=== PATIENT | male | born 1955 | race Caucasian/White ===

== ENCOUNTER → 2016-08-20 | Outpatient (CLI) | payer MEDICARE ==
[2016-08-20 11:46] LABS: Basophils # (A) 0.1 k/uL (0-0.2); Basophils % (A) 2 %; CHCM 33.1; Eosinophils # (A) 0.2 k/uL (0-0.7); Eosinophils % (A) 3 %; HCT 42.3 % (39.0-53.0); HDW 2.99; HGB 13.9 gm/dL (13.0-17.5); Luc # (Auto) 0.19; Luc % (Auto) 3; Lymphocytes # (A) 1.1 k/uL (1.0-4.8); Lymphocytes % (A) 20 %; MCH 28.8 pg (25.0-35.0); MCHC 32.8 g/dL (31.0-37.0); MCV 87.8 fL (80.0-100.0); Mean Platelet Volume 7.9; Monocytes # (A) 0.3 k/uL (0-1.0); Monocytes % (A) 6 %; Neutrophils # (A) 3.6 k/uL (1.3-7.7); Neutrophils % (A) 66 %; RBC 4.82 m/uL (4.30-5.90); RDW 14.4 % (11.5-15.5); WBC 5.5 k/uL (3.8-10.6); WBC (Perox) 5.82
[2016-08-20 11:59] LABS: Appearance,Urine Clear (Clear); Bilirubin,Urine Negative (Negative); Glucose,Urine (UA) 3+ (Negative); Ketones,Urine Negative (Negative); Leukocyte Esterase,Urine Negative (Negative); Nitrite,Urine Negative (Negative); Protein,Urine Trace (Negative); Specific Gravity,Urine 1.012 (1.001-1.035); UA Billing (MACRO vs. MICRO) CHEM; Urobilinogen,Urine <2.0 mg/dL (<2.0)
[2016-08-20 12:23] LABS: Magnesium 1.6 mg/dL (1.6-2.3); Phosphorous 3.5 mg/dL (2.5-4.5); Potassium 4.8 mmol/L (3.5-5.1); Uric Acid 5.8 mg/dL (3.5-8.5)
[2016-08-20 12:32] LABS: % Iron Saturation 34.6 % (20-50)
== END | disposition home or self-care (01) ==
LOC: LABWHC1 11:06
PROVIDERS: ATTEND Internal Medicine Cardiovascular Disease
DX: N18.3 Chronic kidney disease, stage 3 (moderate) (principal); D50.9 Iron deficiency anemia, unspecified; E55.9 Vitamin D deficiency, unspecified; M10.9 Gout, unspecified; N39.0 Urinary tract infection, site not specified; E78.2 Mixed hyperlipidemia
CPT/HCPCS: 36415; 80048; 80061; 81003; 82306; 82550; 82728; 83540; 83550; 83735; 83970; 84100; 84450; 84460; 84550; 85025

== ENCOUNTER → 2016-12-14 | Outpatient (CLI) | payer MEDICARE ==
[2016-12-14 11:03] LABS: CH 28.6; CHCM 32.5; HCT 39.7 % (39.0-53.0); HDW 2.92; HGB 12.9 gm/dL (13.0-17.5); MCH 28.7 pg (25.0-35.0); MCHC 32.6 g/dL (31.0-37.0); MCV 88.2 fL (80.0-100.0); Mean Platelet Volume 7.8; RBC 4.49 m/uL (4.30-5.90); RDW 14.8 % (11.5-15.5)
[2016-12-14 11:21] LABS: ALT 36 U/L (21-72); AST 26 U/L (17-59); Alkaline Phosphatase 66 U/L (38-126); Anion Gap 10 mmol/L; Bilirubin, Delta 0.4 mg/dL (0.0-0.2); Blood Urea Nitrogen 24 mg/dL (9-20); Calcium 9.9 mg/dL (8.4-10.2); Carbon Dioxide 30 mmol/L (22-30); Chloride 99 mmol/L (98-107); Cholesterol 309 mg/dL (<200); Creatine Kinase 85 U/L (55-170); Glucose 131 mg/dL (74-99); HDL Cholesterol 35 mg/dL (40-60); Non-African American GFR(MDRD) >60 (>60 ml/min/1.73 sqM); Sodium 139 mmol/L (137-145); Total Bilirubin 0.6 mg/dL (0.2-1.3); Total Protein 8.2 g/dL (6.3-8.2)
[2016-12-14 11:36] LABS: Triglycerides 584 mg/dL (<150)
[2016-12-14 14:15] LABS: Hemoglobin A1C 9.5 % (4.2-6.1)
== END | disposition home or self-care (01) ==
LOC: LABWHC1 10:34
PROVIDERS: ATTEND Internal Medicine Cardiovascular Disease
DX: I10 Essential (primary) hypertension (principal); E11.9 Type 2 diabetes mellitus without complications; N18.3 Chronic kidney disease, stage 3 (moderate); I25.10 Atherosclerotic heart disease of native coronary artery without angina pectoris; E78.5 Hyperlipidemia, unspecified
CPT/HCPCS: 36415; 80053; 80061; 82248; 82550; 83036; 84439; 84443; 85027

== ENCOUNTER → 2017-03-02 | Outpatient (CLI) | payer MEDICARE ==
[2017-03-02 09:42] LABS: Basophils # (A) 0.1 k/uL (0-0.2); Basophils % (A) 2 %; CH 29.2; CHCM 33.7; Eosinophils # (A) 0.3 k/uL (0-0.7); Eosinophils % (A) 4 %; HCT 44.7 % (39.0-53.0); HDW 3.11; HGB 14.7 gm/dL (13.0-17.5); Luc # (Auto) 0.14; Luc % (Auto) 2; Lymphocytes # (A) 1.4 k/uL (1.0-4.8); Lymphocytes % (A) 21 %; MCH 28.7 pg (25.0-35.0); MCHC 32.9 g/dL (31.0-37.0); MCV 87.2 fL (80.0-100.0); Mean Platelet Volume 8.1; Monocytes # (A) 0.4 k/uL (0-1.0); Monocytes % (A) 6 %; Neutrophils # (A) 4.3 k/uL (1.3-7.7); Neutrophils % (A) 65 %; RBC 5.13 m/uL (4.30-5.90); RDW 15.4 % (11.5-15.5); WBC 6.6 k/uL (3.8-10.6); WBC (Perox) 6.24
[2017-03-02 10:18] LABS: Appearance,Urine Clear (Clear); Bilirubin,Urine Negative (Negative); Glucose,Urine (UA) 4+ (Negative); Ketones,Urine Negative (Negative); Leukocyte Esterase,Urine Negative (Negative); Mucus,Urine Rare /hpf; Nitrite,Urine Negative (Negative); Particle Count 458; Protein,Urine 1+ (Negative); Specific Gravity,Urine 1.018 (1.001-1.035); UA Billing (MACRO vs. MICRO) MICRO; Urobilinogen,Urine <2.0 mg/dL (<2.0); WBC,Urine 1 /hpf (0-5)
[2017-03-02 10:22] LABS: ALT 54 U/L (21-72); AST 28 U/L (17-59); Alkaline Phosphatase 101 U/L (38-126); Anion Gap 16 mmol/L; Bilirubin, Delta 0.4 mg/dL (0.0-0.2); Blood Urea Nitrogen 27 mg/dL (9-20); Calcium 9.9 mg/dL (8.4-10.2); Carbon Dioxide 24 mmol/L (22-30); Chloride 95 mmol/L (98-107); Cholesterol 228 mg/dL (<200); Glucose 367 mg/dL (74-99); HDL Cholesterol 25 mg/dL (40-60); Iron 74 ug/dL (49-181); Magnesium 1.6 mg/dL (1.6-2.3); Non-African American GFR(MDRD) 56 (>60 ml/min/1.73 sqM); Phosphorous 4.5 mg/dL (2.5-4.5); Potassium 4.8 mmol/L (3.5-5.1); Sodium 135 mmol/L (137-145); Total Bilirubin 0.5 mg/dL (0.2-1.3); Total Protein 7.7 g/dL (6.3-8.2)
[2017-03-02 10:31] LABS: % Iron Saturation 24.1 % (20-50); Total Iron Binding Capacity 307 ug/dL (261-462)
[2017-03-02 13:11] LABS: Triglycerides 2312 mg/dL (<150)
== END | disposition home or self-care (01) ==
LOC: LABWHC1 08:58
PROVIDERS: ATTEND Internal Medicine Cardiovascular Disease
DX: E55.9 Vitamin D deficiency, unspecified (principal); E78.5 Hyperlipidemia, unspecified; D50.9 Iron deficiency anemia, unspecified; N18.3 Chronic kidney disease, stage 3 (moderate); N39.0 Urinary tract infection, site not specified; M10.9 Gout, unspecified
CPT/HCPCS: 36415; 80048; 80061; 80076; 81001; 82306; 82728; 83540; 83550; 83735; 83970; 84100; 84550; 85025

== ENCOUNTER → 2017-03-11 | Outpatient (CLI) | payer MEDICARE ==
[~2017-03-11] MED LIST: TUBERCULIN PPD (SKIN TEST) 5 UNIT/0.1 ML (MDV) VIAL INTRADERMA ONE
[2017-03-11 12:03] VITALS: BP 131/77; PULSE 71; RESP 16; TEMP 97.9
== END ==
LOC: PROCWHC3 11:44
PROVIDERS: ATTEND Dermatology MOHS-Micrographic Surgery
DX: L40.0 Psoriasis vulgaris (principal)
CPT/HCPCS: 86580

== ENCOUNTER → 2017-04-02 | Outpatient (CLI) | payer MEDICARE ==
--- NOTE | 2017-04-02 09:37 | US ---
EXAMINATION TYPE: US kidneys/renal and bladder DATE OF EXAM: 04/02/2017 COMPARISON: NONE CLINICAL HISTORY: N18.3 CKD. No symptoms, h/o renal stones EXAM MEASUREMENTS: Right Kidney: 11.9 x 5.7 x 5.2 cm Left Kidney: 12.1 x 5.4 x 5.9 cm Right Kidney: suboptimal views of right renal due to bowel gas and body habitus, appears wnl Left Kidney: mild hydronephrosis is seen an unchanged with inferior renal stone = 1.4cm. The previou sly seen additional 8 mm left lower pole renal calculus is not visualized on today's examination. Bladder: not fully distended but appears wnl Bilateral Jets seen: yes IMPRESSION: 1. Mild persistent left hydronephrosis and 1.4 cm nonobstructing lower pole calculus. Nonvisualizatio n of the additional known 8 mm left renal calculus. 2. Suboptimal visualization of the right kidney.
== END ==
LOC: RADUSWWP 08:57
PROVIDERS: ATTEND Internal Medicine Nephrology
DX: N13.2 Hydronephrosis with renal and ureteral calculous obstruction (principal)
CPT/HCPCS: 76770

== ENCOUNTER 2017-05-05 08:43 | Day surgery (SDC) | payer MEDICARE ==
[2017-04-30 16:15] VITALS: BMI 34.7
[~2017-05-05 08:43] MED LIST changes: +LACTATED RINGERS 1,000 ML IV SCH; -TUBERCULIN PPD (SKIN TEST) 5 UNIT/0.1 ML (MDV) VIAL INTRADERMA ONE
[2017-05-05 09:03] VITALS: TEMP 98.1
[2017-05-05] MEDS ORDERED: LIDOCAINE 1% 20 ML VIAL (10MG/ML) FOR IV START INTRADERMA ONE (09:16)
[2017-05-05 09:41] LABS: Glucose,Whole Blood 268 mg/dL (75-99)
[2017-05-05] MEDS ORDERED: PROPOFOL 10 MG/ML 20 ML VIAL IV ONE (10:25)
--- NOTE | 2017-05-05 10:33 | P.GSHP ---
History of Present Illness H&P Date: 05/05/17 Chief Complaint: Screening colonoscopy This is a [id number] male referred from Dr. Jose Slade. Patient presents today for screening colonoscopy. Past Medical History Past Medical History: Coronary Artery Disease (CAD), Diabetes Mellitus, Hyperlipidemia, Hypertension, Skin Disorder, Thyroid Disorder Additional Past Medical History / Comment(s): psoriasis, stent in heart 12 years ago stent one month ago Sep,psoriasis,kidney stones Last Myocardial Infarction Date:: unknown History of Any Multi-Drug Resistant Organisms: None Reported Past Surgical History: Heart Catheterization With Stent Additional Past Surgical History / Comment(s): AAA 8.5 cm-aortic graft, heart stent x2 Past Anesthesia/Blood Transfusion Reactions: Family History of Problems w/ Anesthesia, Motion Sickness, Postoperative Nausea & Vomiting (PONV) Additional Past Anesthesia/Blood Transfusion Reaction / Comment(s): brother has hx PO n/v Date of Last Stent Placement:: oct 07 2014 Smoking Status: Former smoker - Past Family History Father History Unknown: Yes Mother Family Medical History: Deep Vein Thrombosis (DVT), Myocardial Infarction (NM) Medications and Allergies Home Medications Medication Instructions Recorded Confirmed Type Aspirin 325 mg PO HS 10/04/14 05/05/17 History Nitroglycerin Sl Tabs [Nitrostat] 0.4 mg SL Q5M #25 tab 10/08/14 05/05/17 Rx Levothyroxine Sodium [Synthroid] 75 mcg PO QAM 11/01/14 05/05/17 History Simvastatin [Zocor] 40 mg PO HS 11/01/14 05/05/17 History metFORMIN HCL [Glucophage] 1,000 mg PO BID-W/MEALS tab 11/04/14 05/05/17 Rx Allopurinol [Zyloprim] 100 mg PO DAILY 04/30/17 05/05/17 History Atenolol/Chlorthalidone 0.5 tab PO HS 04/30/17 05/05/17 History [Atenolol-Chlorthalidone 50-25] Ergocalciferol [Vitamin D2] 50,000 unit PO WE 04/30/17 05/05/17 History Insulin NPH Hum/Reg Insulin Hm 50 unit SQ BID-W/MEALS 04/30/17 05/05/17 History [NovoLIN 70-30 100 UNIT/ML VIAL] Magnesium 400 mg PO HS 04/30/17 05/05/17 History Turmeric Root Extract [Turmeric] 250 mg PO HS 04/30/17 05/05/17 History Turmeric Root Extract [Turmeric] 400 mg PO DAILY 04/30/17 05/05/17 History Allergies Allergy/AdvReac Type Severity Reaction Status Date / Time adhesive AdvReac Rash/Hives-paper Verified 05/05/17 08:57 tape ok alprazolam [From Xanax] AdvReac Hallucinati Unverified 05/05/17 08:57 ons codeine AdvReac Nausea & Verified 05/05/17 08:57 Vomiting fentanyl AdvReac Confusion Verified 05/05/17 08:57 lorazepam [From Ativan] AdvReac Confusion Verified 05/05/17 08:57 morphine AdvReac Nausea & Verified 05/05/17 08:57 Vomiting Surgical - Exam Vital Signs Temp Pulse Resp BP Pulse Ox 98.1 F 77 16 160/106 98 05/05/17 08:58 05/05/17 08:58 05/05/17 08:58 05/05/17 08:58 05/05/17 08:58 - General well developed, no distress - Eyes PERRL - ENT normal pinna - Neck no masses - Respiratory normal expansion - Cardiovascular Rhythm: regular - Abdomen Abdomen: soft, non tender Results - Labs Abnormal Lab Results - Last 24 Hours (Table) 05/05/17 Range/Units 09:24 POC Glucose (mg/dL) 268 H (75-99) mg/dL Assessment and Plan Plan: We'll perform screening colonoscopy
--- NOTE | 2017-05-05 10:49 | P.OP ---
Date of Procedure: 05/05/17 Preoperative Diagnosis: Screening colonoscopy Postoperative Diagnosis: Polyp at 80 cm Procedure(s) Performed: Colonoscopy Anesthesia: MAC Surgeon: Ruddy Eugene Pathology: other (Colon polyp) Condition: stable Disposition: PACU Description of Procedure: The patient's placed on the endoscopy table in the lateral position. He received IV sedation. Digital rectal exam was performed which revealed no abnormalities. Lenaayaell colonoscope was then placed patient anus passed throughout the entire colon. The ileocecal valve was visualized. The cecum, ascending and transverse colon appeared normal. At the ascending kari there was a small sessile polyp. This site. Scope was withdrawn remainder the descending and sigmoid colon appeared normal. The scope was withdrawn for patient.
[2017-05-05 11:14] VITALS: BP 139/82; PULSE 82; RESP 20
== END 2017-05-05 11:36 | disposition home or self-care (01) ==
LOC: ORWHC2ENDO 08:43
PROVIDERS: ATTEND Surgery
DX: Z12.11 Encounter for screening for malignant neoplasm of colon (principal); D12.3 Benign neoplasm of transverse colon; I25.10 Atherosclerotic heart disease of native coronary artery without angina pectoris; I10 Essential (primary) hypertension; Z87.891 Personal history of nicotine dependence; E78.5 Hyperlipidemia, unspecified; E11.9 Type 2 diabetes mellitus without complications; Z79.4 Long term (current) use of insulin; Z79.84 Long term (current) use of oral hypoglycemic drugs; E07.9 Disorder of thyroid, unspecified; Z95.5 Presence of coronary angioplasty implant and graft; I25.2 Old myocardial infarction; I73.9 Peripheral vascular disease, unspecified; N28.9 Disorder of kidney and ureter, unspecified; Z79.82 Long term (current) use of aspirin; Z79.899 Other long term (current) drug therapy; Z88.5 Allergy status to narcotic agent; Z88.8 Allergy status to other drugs, medicaments and biological substances; Z91.09 Other allergy status, other than to drugs and biological substances
CPT/HCPCS: 88305; 45380; J2704

== ENCOUNTER → 2017-07-09 | Outpatient (CLI) | payer MEDICARE ==
--- NOTE | 2017-07-09 13:21 | US ---
EXAMINATION TYPE: US thyroid st tissue head/neck DATE OF EXAM: 07/09/2017 COMPARISON: EXAMINATION TYPE: US thyroid st tissue head/neck DATE OF EXAM: 07/09/2017 COMPARISON: NONE CLINICAL HISTORY: R22.1 Neck mass. palpable area left side of neck just under ear for approximately o ne month, patient believes it is getting smaller and area is not tender or painful. Scanned palpable area just below left ear, parotid gland area, there is a 2.5 x 1.8 x 1.7cm complex a sis with some internal flow, appears inside of parotid gland. IMPRESSION: Complex, vascular partially cystic and partially solid mass either within the inferior s uperficial lobe of the parotid gland or adjacent to the parotid gland. Diagnostic considerations are for necrotic adenopathy, pleomorphic adenoma adenoid cystic carcinoma, Warthin's tumor, or less likel y complex second branchial cleft cyst. Further evaluation with dynamic contrast enhanced CT or MR are recommended.
== END | disposition home or self-care (01) ==
LOC: RADUSWWP 12:51
PROVIDERS: ATTEND Family Medicine
DX: K11.8 Other diseases of salivary glands (principal); R22.1 Localized swelling, mass and lump, neck
CPT/HCPCS: 76536

== ENCOUNTER → 2017-08-06 | Outpatient (CLI) | payer MEDICARE ==
[2017-08-07 02:55] LABS: Basophils # (A) 0.1 k/uL (0-0.2); Basophils % (A) 1 %; Eosinophils # (A) 0.2 k/uL (0-0.7); Eosinophils % (A) 3 %; HCT 43.5 % (39.0-53.0); HGB 13.6 gm/dL (13.0-17.5); Hypochromasia Slight; Lymphocytes # (A) 1.5 k/uL (1.0-4.8); Lymphocytes % (A) 18 %; MCH 28.5 pg (25.0-35.0); MCHC 31.4 g/dL (31.0-37.0); MCV 90.8 fL (80.0-100.0); Mean Platelet Volume 10.3; Monocytes # (A) 0.5 k/uL (0-1.0); Monocytes % (A) 6 %; Neutrophils # (A) 5.9 k/uL (1.3-7.7); Neutrophils % (A) 71 %; Platelet Count 227 k/uL (150-450); RBC 4.79 m/uL (4.30-5.90); WBC 8.3 k/uL (3.8-10.6)
[2017-08-07 16:57] LABS: Erythrocyte Sedimentation Rate 58 mm/hr (0-15)
[2017-08-10 15:33] LABS: C-ANCA <1:20 Titer (<1:20); P-ANCA <1:20 Titer (<1:20)
== END | disposition home or self-care (01) ==
LOC: LABWHC1 10:26
PROVIDERS: ATTEND Otolaryngology
DX: L92.9 Granulomatous disorder of the skin and subcutaneous tissue, unspecified (principal)
CPT/HCPCS: 36415; 82784; 82785; 85025; 85652; 86038; 86255

== ENCOUNTER → 2018-06-28 | Outpatient (CLI) | payer MEDICARE ==
--- NOTE | 2018-06-28 14:32 | US ---
EXAMINATION TYPE: US kidneys/renal and bladder DATE OF EXAM: 06/28/2018 COMPARISON: 04/02/2017 CLINICAL HISTORY: N18.3 Chronic kidney disease, stage 3 (moderate); diabetic; renal stones EXAM MEASUREMENTS: Right Kidney: 10.1 x 5.8 x 5.0 cm Left Kidney: 12.8 x 5.8 x 6.3 cm Post Void Residual Volume: 9.3 mL Right Kidney: No hydronephrosis or nephrolithiasis seen Left Kidney: mid medial shadowing stone = 1.6 x 2.0 x 0.7cm; cluster of shadowing stones = 1.2 x 0.7 x 0.9cm ; mild renal pelvic prominence is noted with renal stone; upper pole clustered cyst = 2.4 x 2 .0 x 1.8cm Bladder: wnl Bilateral Jets seen: yes, small jets are seen Normal Post Void Residual: yes IMPRESSION: 1. Left renal calculi with mild hydronephrosis similar in appearance to the prior exam. 2. Upper pole left renal cyst measuring 2.4 cm. .
== END | disposition home or self-care (01) ==
LOC: RADUSWWP 13:32
PROVIDERS: ATTEND Internal Medicine Nephrology
DX: N13.2 Hydronephrosis with renal and ureteral calculous obstruction (principal); N28.1 Cyst of kidney, acquired; N18.3 Chronic kidney disease, stage 3 (moderate)
CPT/HCPCS: 76770

== ENCOUNTER → 2019-07-05 | Outpatient (CLI) | payer MEDICARE ==
--- NOTE | 2019-07-05 11:04 | US ---
EXAMINATION TYPE: US kidneys/renal and bladder DATE OF EXAM: 07/05/2019 COMPARISON: 06/28/2018 CLINICAL HISTORY: N18.3 CKD STAGE 3. CKD stage 3, history of kidney stones EXAM MEASUREMENTS: Right Kidney: 11.5 x 5.9 x 5.0 cm Left Kidney: 12.9 x 5.5 x 4.3 cm Right Kidney: somewhat lobulated contour Left Kidney: cystic area upper pole = 2.3 x 1.8 x 1.7cm, stone mid = 1.6cm, stone lower pole = 1.3cm, minimally prominent left renal pelvis Bladder: appears wnl Bilateral Jets seen: no There is no evidence for hydronephrosis at this point in time. Mild cortical renal thinning. No mas ses are identified. The urinary bladder is anechoic. Bilateral ureteral jets are seen. IMPRESSION: 1. Nonobstructing left renal calculi measuring 1.6 cm in the mid pole and 1.3 cm in the lower pole. S lightly prominent left renal pelvis without hydronephrosis. 2. Sonographic sequela of medical renal disease.
== END | disposition home or self-care (01) ==
LOC: RADUSWWP 09:46
PROVIDERS: ATTEND Internal Medicine Nephrology
DX: N20.0 Calculus of kidney (principal)
CPT/HCPCS: 76770

== ENCOUNTER → 2020-03-26 | Outpatient (CLI) | payer MEDICARE | END | disposition home or self-care (01) | LOC: LABWHC1 13:05 | PROVIDERS: ATTEND Physician Assistant | DX: L40.0 Psoriasis vulgaris (principal); Z79.899 Other long term (current) drug therapy | CPT/HCPCS: 36415; 86480 ==

== ENCOUNTER → 2021-01-29 | Outpatient (CLI) | payer MEDICARE ==
--- NOTE | 2021-01-29 13:39 | XR ---
EXAMINATION TYPE: XR chest 2V DATE OF EXAM: 01/29/2021 COMPARISON: Prior chest x-ray 10/03/2014 HISTORY: Chest pain TECHNIQUE: Frontal and lateral views of the chest are obtained on 3 images. FINDINGS: There is no focal air space opacity, pleural effusion, or pneumothorax seen. The cardiac silhouette size is within normal limits. There is stable elevation of the right hemidiaphragm. The o sseous structures are intact, there is thoracic spondylosis. Aorta is dense. IMPRESSION: No acute cardiopulmonary process.
== END | disposition home or self-care (01) ==
LOC: RADXRMAIN 09:28
PROVIDERS: ATTEND Family Medicine
DX: R07.9 Chest pain, unspecified (principal)
CPT/HCPCS: 71046

== ENCOUNTER → 2021-02-12 | Outpatient (CLI) | payer MEDICARE ==
--- NOTE | 2021-02-12 13:46 | CONS ---
CONSULTATION DATE OF SERVICE: 02/12/2021. 65-year-old gentleman has been evaluated in Sleep Center for possible obstructive sleep apnea-hypopnea syndrome. HISTORY OF PRESENT ILLNESS/SLEEP WAKE EVALUATION: SLEEP SCHEDULE: Patient's usual sleep schedule from 09:30/10 p.m. until 7 or 8 a.m. FALLING ASLEEP: No problems with falling asleep. No TV in bedroom. DURING SLEEP: He sleeps in different position. According to his , he snores. He wakes up from sleep once with nocturia and dry mouth. DURING THE DAY/SLEEP WAKE EVALUATION: In the morning, patient wakes up tired and feels sleepy. During the day, may take naps any time. [place] Sleepiness Scale is 6. During the night, patient moving significantly. No history of hypnogogical hallucinations, sleep paralysis or cataplexy. PAST MEDICAL HISTORY: Positive for coronary artery disease, status post stent insertion, hypertension, abdominal aortic aneurysm treated with the graft installation, diabetes mellitus, hypertension, hypothyroidism, acid reflux, gout, hyperlipidemia, back problems. PAST SURGICAL HISTORY: Treatment of abdominal aortic aneurysm as already mentioned above, stent insertion to coronary arteries. MEDICATIONS: Metformin 500 mg 2 tablets in the morning. Aspirin 325 mg once a day. Atenolol chlorthalidone 50/25 mg half a day, Pioglitazone once a day, levothyroxine 75 mcg once a day, Famotidine 20 mg to 1-2 times a day. Allopurinol 100 mg once a day. Naproxen. Crestor 40 mg once a day. SOCIAL HISTORY: Negative for smoking. Occasional alcohol at the present time. FAMILY HISTORY: Positive for sleep apnea by his brother. REVIEW OF SYSTEMS: Tiredness and sleepiness during the day. No fevers. No double vision. No recent chest pain. No shortness of breath. No abdominal pain. No bleeding episodes. No blood in the urine. No seizure episodes. No chest pain. No headache at the present time. No abdominal pain. No blood in the urine. No blood in the stool. PHYSICAL EXAMINATION: GENERAL: gentleman without distress. VITAL SIGNS: BP 159/82, HR 58, RR 18, height 6 feet 1 inch, weight 314.6, body mass index 41.4, temperature 96.6. HEENT: PERRLA, EOMI. Oropharynx extremely low position of soft palate. Mallampati IV. NECK: Supple. No JVD. Neck is wide, 22 inches in circumference. LUNGS: Clear to percussion and to auscultation. Good air exchange. No wheezing or rhonchi. HEART: S1, S2 regular. No murmurs, gallops, or rubs. ABDOMEN: Obese. Soft and nontender. Bowel sounds are present. No organomegaly appreciated. EXTREMITIES: No clubbing or cyanosis. INSURANCE SALES PRODUCER: Awake, alert, and oriented X3. Cranial nerves 2 to 7 intact. There is no fasciculation or atrophy. noted. No focal deficits observed. IMPRESSION: 1. Snoring awakenings from sleep with dry mouth, extremely low position of soft palate, Mallampati 4, extremely wide neck 22 inches. Excessive daytime sleepiness. Patient may take naps at any time. Obstructive sleep apnea-hypopnea syndrome. 2. Obesity, body mass index 41.4. 3. Hypertension. 4. Coronary artery disease, status post stent insertions. 5. History of abdominal aortic aneurysm, status post treatment with a graft. 6. Diabetes mellitus. 7. Hypothyroidism. 8. Acid reflux. 9. Gout. 10.Back problems. PLAN: 1. Polysomnography for evaluation of patient's breathing during sleep. 2. CPAP/BiPAP titration if sleep study confirms obstructive sleep apnea-hypopnea syndrome. 3. Preferable position during sleep on the side. 4. No driving if patient feels any sleepiness. 5. I will see patient for follow up visit to explain results of testing and following plan. Thank you very much for referring this patient for consultation. Sincerely, Mark Castro MD, PhD, FAASM Diplomat of [employer] [facility] [place] MMODL / IJN: [id number] /
== END ==
LOC: SLEEP 10:51
PROVIDERS: ATTEND Internal Medicine
DX: G47.33 Obstructive sleep apnea (adult) (pediatric) (principal); E66.9 Obesity, unspecified; E03.9 Hypothyroidism, unspecified; E11.9 Type 2 diabetes mellitus without complications; E78.5 Hyperlipidemia, unspecified; I10 Essential (primary) hypertension; K21.9 Gastro-esophageal reflux disease without esophagitis; Z68.41 Body mass index [BMI] 40.0-44.9, adult; I25.10 Atherosclerotic heart disease of native coronary artery without angina pectoris; M10.9 Gout, unspecified; Z86.79 Personal history of other diseases of the circulatory system; M53.80 Other specified dorsopathies, site unspecified; Z79.82 Long term (current) use of aspirin; Z79.84 Long term (current) use of oral hypoglycemic drugs; Z79.899 Other long term (current) drug therapy; Z95.5 Presence of coronary angioplasty implant and graft; Z88.5 Allergy status to narcotic agent; Z88.8 Allergy status to other drugs, medicaments and biological substances; Z91.048 Other nonmedicinal substance allergy status; Z87.891 Personal history of nicotine dependence
CPT/HCPCS: 99211

== ENCOUNTER → 2021-03-03 | Outpatient (CLI) | payer MEDICARE | END | disposition home or self-care (01) | LOC: LABWHC1 13:52 | PROVIDERS: ATTEND Dermatology | DX: Z79.899 Other long term (current) drug therapy (principal) | CPT/HCPCS: 36415; 86480 ==

== ENCOUNTER 2021-05-15 09:00 | Day surgery (SDC) | payer MEDICARE ==
[2021-05-13 11:31] VITALS: BMI 38.5
[~2021-05-15 09:00] MED LIST changes: -LACTATED RINGERS 1,000 ML IV SCH; +SODIUM CHLORIDE 0.9% 1,000 ML IV SCH
[2021-05-15] MEDS ORDERED: SODIUM CHLORIDE 0.9% 500 ML IV ONE (09:24)
[2021-05-15 09:40] VITALS: BP 209/99; RESP 16; TEMP 98.8
[2021-05-15 09:46] LABS: Glucose,Whole Blood 261 mg/dL (75-99)
[2021-05-15 11:04] VITALS: PULSE 78
--- NOTE | 2021-05-15 14:20 | P.EPPROC ---
- EP Procedure Note Electrophysiology Procedure Note: Diagnosis Recurrent dizzy spells Twelve-lead EKG Sinus rhythm normal ME narrow QRS normal ST segments Tilt table test per protocol Baseline blood pressure 178/86 and 169/79 mmHg Patient was tilted upright at an angle lives 70 per protocol within 2 minutes there was a drop in his blood pressure to 153/83 mmHg Following that there was a gradual progressive decline in his blood pressure to between 120 230 mmHg Heart rate remained stable Patient remained asymptomatic Impression supine hypertension Possible mild orthostatic hypotension syndrome Normal twelve-lead EKG
== END 2021-05-15 11:04 | disposition home or self-care (01) ==
LOC: CATHEP 09:00
PROVIDERS: ATTEND Internal Medicine Clinical Cardiac Electrophysiology
DX: R42 Dizziness and giddiness (principal); I10 Essential (primary) hypertension; E78.2 Mixed hyperlipidemia; E11.9 Type 2 diabetes mellitus without complications; Z95.5 Presence of coronary angioplasty implant and graft; Z20.822 Contact with and (suspected) exposure to COVID-19; E78.00 Pure hypercholesterolemia, unspecified; I25.10 Atherosclerotic heart disease of native coronary artery without angina pectoris; I71.4 Abdominal aortic aneurysm, without rupture; Z79.899 Other long term (current) drug therapy; Z79.84 Long term (current) use of oral hypoglycemic drugs; Z79.890 Hormone replacement therapy; Z79.4 Long term (current) use of insulin; Z88.4 Allergy status to anesthetic agent; Z88.5 Allergy status to narcotic agent; Z88.8 Allergy status to other drugs, medicaments and biological substances; J44.9 Chronic obstructive pulmonary disease, unspecified
CPT/HCPCS: 87635; 93660

== ENCOUNTER → 2021-06-11 | Outpatient (CLI) | payer MEDICARE ==
--- NOTE | 2021-06-12 10:09 | ECHOF ---
Referral Reason:R06.00 shortness of breath MEASUREMENTS -------- HEIGHT: 182.9 cm WEIGHT: 142.4 kg BP: RVIDd: 3.8 cm (< 3.3) IVSd: 1.4 cm (0.6 - 1.1) LVIDd: 3.9 cm (3.9 - 5.3) LVPWd: 2.5 cm (0.6 - 1.1) IVSs: 2.1 cm LVIDs: 3.6 cm LVPWs: 1.7 cm Ao Diam: 3.6 cm (2.0 - 3.7) AV Cusp: 1.5 cm (1.5 - 2.6) LA Diam: 4.3 cm (2.7 - 3.8) MV EXCURSION: 17.858 mm (> 18.000) MV EF SLOPE: 45 mm/s (70 - 150) EPSS: 0.3 cm MV E Go: 0.35 m/s MV DecT: 230 ms MV A Go: 0.66 m/s MV E/A Ratio: 0.53 RAP: 5.00 mmHg RVSP: 14.95 mmHg FINDINGS -------- Sinus rhythm. Morbid Obesity The left ventricular size is normal. There is moderate concentric left ventricular hypertrophy. O verall left ventricular systolic function is low-normal with, an EF between 50 - 55 %. The right ventricle is normal in size. The left atrial size is normal. The right atrial size is normal. There is mild aortic valve sclerosis. There is no evidence of aortic regurgitation. Mild mitral regurgitation is present. Mild tricuspid regurgitation present. Right ventricular systolic pressure is normal at < 35 mmHg. The pulmonic valve was not well visualized. Echo free space represents a pericardial fat pad. There is a small pericardial effusion is located near the right atrium. CONCLUSIONS -------- 1. Morbid Obesity 2. The left ventricular size is normal. 3. There is moderate concentric left ventricular hypertrophy. 4. Overall left ventricular systolic function is low-normal with, an EF between 50 - 55 %. 5. The right ventricle is normal in size. 6. The left atrial size is normal. 7. The right atrial size is normal. 8. There is mild aortic valve sclerosis. 9. Mild mitral regurgitation is present. 10. Mild tricuspid regurgitation present. 11. The pulmonic valve was not well visualized. 12. Echo free space represents a pericardial fat pad. 13. There is a small pericardial effusion is located near the right atrium. PRINTER APPRENTICE: Beatriz Wilson RDCS
== END | disposition home or self-care (01) ==
LOC: RADECHMAIN 14:51
PROVIDERS: ATTEND Family Medicine
DX: I35.8 Other nonrheumatic aortic valve disorders (principal); I31.3 Pericardial effusion (noninflammatory); I51.7 Cardiomegaly; E66.01 Morbid (severe) obesity due to excess calories
CPT/HCPCS: 93306

== ENCOUNTER → 2021-07-23 | Outpatient (CLI) | payer MEDICARE ==
[2021-07-23 17:14] LABS: African American GFR (CKD) 62.2 (60.0-200.0); Albumin 4.3 g/dL (3.8-4.9); Albumin/Globulin Ratio 1.47 (1.60-3.17); Anion Gap 15.5 mmol/L (10.00-18.00); BUN/Creat Ratio 17.9 Ratio (12.00-20.00); Blood Urea Nitrogen 24.7 mg/dL (9.0-27.0); Calcium 10.1 mg/dL (8.7-10.3); Carbon Dioxide 24.4 mmol/L (20.0-27.5); Globulin 2.9 g/dL (1.6-3.3); HDL Cholesterol 27.8 mg/dL (40.00-60.00); Magnesium 1.8 mg/dL (1.5-2.4); Non-African American GFR(CKD) 53.7 (60.0-200.0); Total Bilirubin 0.2 mg/dL (0.30-1.20); Total Protein 7.2 g/dL (6.2-8.2)
[2021-07-23 17:42] LABS: Chol/HDL Ratio 5.65 Ratio; LDL Cholesterol,Direct Reflex 39.8 mg/dL (0.00-129.00)
== END | disposition home or self-care (01) ==
LOC: LABWHC1 08:55
PROVIDERS: ATTEND Nurse Practitioner Adult Health
DX: I10 Essential (primary) hypertension (principal); E78.5 Hyperlipidemia, unspecified
CPT/HCPCS: 36415; 80053; 80061; 83721; 83735; 83880

== ENCOUNTER → 2021-08-07 | Outpatient (CLI) | payer MEDICARE ==
--- NOTE | 2021-08-07 19:49 | SFUN ---
SLEEP CENTER FOLLOW UP NOTE DATE OF SERVICE: 08/07/2021 66-year-old gentleman has been followed in Sleep Center for treatment of obstructive sleep apnea-hypopnea syndrome. Recently the patient had a polysomnogram which showed severe obstructive sleep apnea. I discussed results of sleep study with patient in detail. Then he had titration. Today is his first visit after he was started on treatment with BiPAP. The patient has significant difficulties with BiPAP related to awakenings from sleep with the feeling pressure is too high. He is using fullface mask. Sometimes feel that his mouth is dry. I checked his BiPAP unit. Maximal respiratory pressure 18, minimal expiratory pressure 12, pressure support 4, average pressure 16.5 for 12.5. Leak is 26 L/minute, which is acceptable. Usage is 25/30 nights and 18/30 nights more than 4 hours, average 5.4 hours per night. Apnea-hypopnea index is only 1.1 which is absolutely normal. Position of machine is not correct which is on about the same level as the patient had and the tube is not in direct position. [place] Sleepiness Scale today is 2. MEDICATIONS: Metformin 500 mg twice a day, aspirin 325 mg once a day, atenolol chlorthalidone 50/25 mg half a day. Pioglitazone once a day, levothyroxine 75 mcg once a day, famotidine 20 mg 1-2 times a day, allopurinol 100 mg once a day, Crestor 40 mg once a day, naproxen. PHYSICAL EXAMINATION: GENERAL: Patient in no distress. BP 150/83, HR 75, RR 15, weight 315.8 pounds, temperature 96.8, oxygen saturation at room air 95%. Oropharynx extremely low position of soft palate, Mallampati 4. NECK: Supple, no JVD. Thyroid is not palpable. LUNGS: Clear to percussion and to auscultation. Good air exchange. No wheezing or rhonchi. HEART: S1, S2 regular. No murmurs, gallops, or rubs. ABDOMEN: Obese. Soft and nontender. Bowel sounds are present. No organomegaly appreciated. EXTREMITIES: No clubbing or cyanosis. TAR HEEL: Awake, alert, and oriented X3. Cranial nerves 2 to 7 intact. There is no fasciculation or atrophy. noted. No focal deficits observed. IMPRESSION: 1. Severe obstructive sleep apnea-hypopnea syndrome by results of polysomnogram. Apnea-hypopnea index 43.1 with oxygen desaturation to 83.5%. The patient is using BiPAP equipment but has problems with the pressure sometimes feels the mouth is dry. also position of the machine is not correct. The patient keeps water in humidifier for several days. 2. Obesity. 3. Extremely severe periodic limb movements for hypertension. 4. Coronary artery disease, status post stent insertion. 5. History of abdominal aortic aneurysm status post treatment with graft. 6. Diabetes mellitus. 7. Hypothyroidism. 8. Acid reflux. 9. Gout. 10.Back problems. PLAN: 1. I decreased pressure to maximal inspiratory pressure to 16 and minimal expiratory pressure 9. Continue to have pressure support of 4. 2. Machine should stay lower than the patient head. 3. Direct position of the hose. 4. Heated humidity already in the highest level of 8. Patient feels dryness. Maybe heater is not working on proper range. The machine should be checked. Humidifier in the machine should be checked. 5. Continue to use BiPAP equipment every night for the whole night. 6. Losing weight. 7. No driving if feeling sleepiness. 8. Followup visit in 2 months. 9. I would prefer to use automatic ramp but machine does not have this option. Thank you very much for allowing me to participate in the management of your patient. Sincerely, Mark Castro MD, PhD, FAASM Diplomat of [employer] Sleep Medicine Board of [employer] [facility] [place] MMODL / SYDN: [id number] /
== END ==
LOC: SLEEP 11:41
PROVIDERS: ATTEND Internal Medicine
DX: G47.33 Obstructive sleep apnea (adult) (pediatric) (principal); G47.36 Sleep related hypoventilation in conditions classified elsewhere; E66.9 Obesity, unspecified; G47.61 Periodic limb movement disorder; I25.10 Atherosclerotic heart disease of native coronary artery without angina pectoris; E11.9 Type 2 diabetes mellitus without complications; E03.9 Hypothyroidism, unspecified; K21.9 Gastro-esophageal reflux disease without esophagitis; M53.80 Other specified dorsopathies, site unspecified; Z95.5 Presence of coronary angioplasty implant and graft; Z86.79 Personal history of other diseases of the circulatory system; Z99.89 Dependence on other enabling machines and devices; Z95.828 Presence of other vascular implants and grafts; Z79.84 Long term (current) use of oral hypoglycemic drugs; Z79.82 Long term (current) use of aspirin; Z79.890 Hormone replacement therapy; Z91.048 Other nonmedicinal substance allergy status; Z88.5 Allergy status to narcotic agent; Z88.6 Allergy status to analgesic agent; Z88.8 Allergy status to other drugs, medicaments and biological substances; Z87.891 Personal history of nicotine dependence